=== PATIENT | female | born 1955 | race Native Hawaiian/Other Pacific Islander ===

== ENCOUNTER 2019-02-17 08:52 | Outpatient (CLI) | payer SELFPAY | END 2019-02-17 08:53 | disposition home or self-care (01) | LOC: C.LAB 08:52 | DX: E78.2 Mixed hyperlipidemia (principal); D50.9 Iron deficiency anemia, unspecified; Z00.01 Encounter for general adult medical examination with abnormal findings ==

== ENCOUNTER 2019-03-03 10:20 | Outpatient (CLI) | payer OTHER | END 2019-03-03 10:21 | disposition home or self-care (01) | LOC: C.DEXAIC 10:20 | DX: M85.80 Other specified disorders of bone density and structure, unspecified site (principal) ==